=== PATIENT | female | born 1975 | race Caucasian/White ===

== ENCOUNTER → 2023-05-09 08:05 | Outpatient (REF) | payer BC, SELFPAY | LOC: RAD 08:05 | PROVIDERS: ATTENDING PHYSICIAN Family Medicine | DX: M89.8X8 Other specified disorders of bone, other site (principal); M95.8 Other specified acquired deformities of musculoskeletal system | CPT/HCPCS: 73000 ==

== ENCOUNTER → 2023-08-29 15:02 | Outpatient (REF) | payer BC, SELFPAY | LOC: CPAP 15:02 | PROVIDERS: ATTENDING PHYSICIAN Obstetrics & Gynecology Gynecology | DX: Z01.419 Encounter for gynecological examination (general) (routine) without abnormal findings (principal) | CPT/HCPCS: 87624 ==

== ENCOUNTER → 2023-09-26 16:22 | Outpatient (REF) | payer BC, SELFPAY | LOC: WDC 16:22 | PROVIDERS: ATTENDING PHYSICIAN Obstetrics & Gynecology Gynecology; FAMILY PHYSICIAN Nurse Practitioner Adult Health | DX: Z12.31 Encounter for screening mammogram for malignant neoplasm of breast (principal) | CPT/HCPCS: 77063; 77067 ==

== ENCOUNTER → 2024-03-24 17:18 | Outpatient (REF) | payer BC, SELFPAY | LOC: MRI 3T 17:18 | PROVIDERS: ATTENDING PHYSICIAN Nurse Practitioner Adult Health | DX: R93.0 Abnormal findings on diagnostic imaging of skull and head, not elsewhere classified (principal); R42 Dizziness and giddiness; R20.0 Anesthesia of skin; R20.2 Paresthesia of skin; R68.89 Other general symptoms and signs | CPT/HCPCS: 70544; 70553; 72141; A9575 ==

== ENCOUNTER → 2024-04-24 10:09 | Outpatient (REF) | payer BC, SELFPAY ==
[2024-04-24 10:50] LABS: ALT (SGPT) 19 U/L (0-35); AST (SGOT) 27 U/L (14-36); Albumin 4.4 g/dl (3.5-5.0); Alkaline Phosphatase 58 U/L (38-126); Blood Urea Nitrogen 21 mg/dl (7-17); Calcium 9.1 mg/dl (8.4-10.2); Carbon Dioxide 29 mmol/L (22-30); Chloride 102 mmol/L (98-107); Glucose 108 mg/dl (70-99); Potassium 4.7 mmol/L (3.5-5.1); Sodium 135 mmol/L (135-145); Total Cholesterol 225 mg/dl (50-199); Total Protein 7.3 g/dl (6.3-8.2); Triglyceride 67 mg/dl (10-149); Very Low Density Lipoprotein 13 mg/dl (0-30); eGFR > 60.00
[2024-04-24 10:51] LABS: Hematocrit 41.4 % (37.0-47.0); Hemoglobin 13.7 g/dL (12.0-16.0); Mean Corp Hgb Conc. 33.1 g/dL (33.0-37.0); Mean Corpuscular Hgb 32.3 pg (27.0-31.0); Mean Corpuscular Volume 97.6 fL (81.0-99.0); Mean Platelet Volume 10.5 fL (7.4-10.4); Platelet Count 269 10^3/uL (130-400); Red Blood Cell Count 4.24 10^6/uL (4.20-5.40); Red Cell Dist. Width 11.8 % (11.5-14.5); White Blood Cell Count 4.9 10^3/uL (4.8-10.8)
[2024-04-24 11:00] LABS: HDL Cholesterol 107 mg/dl; LDL Cholesterol, Calculated 105 mg/dl
[2024-04-24 11:44] LABS: TSH Reflex To Free T4 0.62 uIU/ml (0.47-4.68)
[2024-04-24 12:19] LABS: Folate 17.2 ng/ml (2.76-20); Vitamin B12 439 pg/ml (239-931)
== END ==
LOC: REG 10:09
PROVIDERS: ATTENDING PHYSICIAN Nurse Practitioner Adult Health
DX: Z79.899 Other long term (current) drug therapy (principal); Z13.29 Encounter for screening for other suspected endocrine disorder; Z00.00 Encounter for general adult medical examination without abnormal findings; Z81.8 Family history of other mental and behavioral disorders; Z51.81 Encounter for therapeutic drug level monitoring
CPT/HCPCS: 36415; 80053; 80061; 82607; 82746; 84443; 85027

== ENCOUNTER → 2024-04-30 09:11 | Outpatient (REF) | payer BC, SELFPAY ==
[2024-04-30 10:40] LABS: Blood Urea Nitrogen 16 mg/dl (7-17); Calcium 9.7 mg/dl (8.4-10.2); Carbon Dioxide 27 mmol/L (22-30); Chloride 102 mmol/L (98-107); Glucose 122 mg/dl (70-99); Potassium 4.9 mmol/L (3.5-5.1); Sodium 138 mmol/L (135-145); eGFR > 60.00
== END ==
LOC: REG 09:11
PROVIDERS: ATTENDING PHYSICIAN Nurse Practitioner Adult Health
DX: R73.01 Impaired fasting glucose (principal)
CPT/HCPCS: 36415; 80048; 83036

== ENCOUNTER → 2024-05-12 09:00 | Outpatient (REF) | payer BC, SELFPAY | LOC: CLAB 09:00 | PROVIDERS: ATTENDING PHYSICIAN Nurse Practitioner Adult Health | DX: R39.9 Unspecified symptoms and signs involving the genitourinary system (principal) | CPT/HCPCS: 87077; 87086 ==

== ENCOUNTER → 2024-05-13 15:28 | Outpatient (REF) | payer BC, SELFPAY ==
[2024-05-13 16:22] LABS: FSH 6.1 mIU/ml
== END ==
LOC: REG 15:28
PROVIDERS: ATTENDING PHYSICIAN Obstetrics & Gynecology Gynecology; FAMILY PHYSICIAN Nurse Practitioner Adult Health
DX: N95.1 Menopausal and female climacteric states (principal)
CPT/HCPCS: 36415; 82681; 83001; 83002

== ENCOUNTER → 2024-11-05 13:56 | Outpatient (REF) | payer BC, SELFPAY | LOC: WDC 13:56 | PROVIDERS: ATTENDING PHYSICIAN Nurse Practitioner Adult Health | DX: Z12.31 Encounter for screening mammogram for malignant neoplasm of breast (principal) | CPT/HCPCS: 77063; 77067 ==